=== PATIENT | male | born 1965 | race Caucasian/White ===

== ENCOUNTER 2019-06-15 01:58 | Emergency (ER) | payer OTHER, SELFPAY | END 2019-06-15 12:25 | disposition short-term general hospital (02) | PROVIDERS: Emergency Provider Emergency Medicine; Visit Provider Emergency Medicine | DX: K92.2 Gastrointestinal hemorrhage, unspecified (principal); K83.8 Other specified diseases of biliary tract; F17.210 Nicotine dependence, cigarettes, uncomplicated | CPT/HCPCS: 36415; 74177; 80053; 81001; 83690; 84484 ×3; 85025; 85610; 85730; 86850; 86900; 86901; 86920; 93005 ×3; 96365; 96366; 96367; 96368; 96375 ×2; 96376; 99285; C9113 ×2; J1170 ×5; J2405 ×2; J2543; J3010; Q9967 ==

== ENCOUNTER 2019-06-28 20:33 | Emergency (ER) | payer OTHER, SELFPAY ==
[2019-06-28 20:37] VITALS: BP 150/82; PULSE 82; RESP 18; TEMP 36.9; O2SAT 100
--- NOTE | 2019-06-28 21:11 | ED_ITS ---
Entered by Harmony Rojas, acting as scribe for Michael Finch DO Jun 28, 2019 20:33 HPI - Abdominal Pain General: Chief Complaint: Abdominal Pain Stated Complaint: Abd pain Time Seen by Provider: 06/28/19 21:12 Source: patient Mode of arrival: ambulatory Limitations: no limitations History of Present Illness: HPI narrative: 54 yo m came to the er for abd pain. Pts states that they are here for a second opinion. Pt states that pt had his surgery to remove his gallbladder and has been having pain ever since and the surgery was 2 months ago. He also states that he was discharged from [facility] in [place] on after having had percutaneous drainage of a fluid collection where his gallbladder was. He states that his pain recurred a couple of days after his drainage, and he has been dealing with it ever since. He denies any fever or vomiting. He states that he is here simply for some pain medicine before he goes back to [facility] to see what is wrong. MD elicited complaint: abdominal pain Pertinent past history: other (gallbladder removed) Onset (ago): month(s) (2 months ago) Pain Consistency: constant Location: RUQ Severity: mild Quality: other (pain) Radiation: none Migration to: no migration Exacerbating factors: nothing Relieving factors: nothing Associated Symptoms: Denies chills, dysuria, fever(s), hematochezia, hematuria, melena, nausea and vomiting Related Data: Patient : No Review of Systems Const: Denies: fever or chills Eyes: Denies: change in vision or blurry vision ENMT: Denies: painful swallowing, swelling of lips/tongue, bleeding gums, dental pain, Change in hearing, nose bleeds, post nasal drip or facial/sinus pain Card: Denies: chest pain, palpitations, irregular heart rhythm, edema, swelling of feet/ankles, shortness of breath on exertion or shortness of breath when lying down Resp: Denies: shortness of breath, productive cough, non-productive cough or wheezing GI: Denies: nausea, vomiting, blood in stool or black tarry stool : Denies: painful urination or blood in urine Musc: Denies: neck pain, back pain, redness or joint warmth Skin/Breast: Denies: rash, itching or redness Neuro: Denies: headache, dizziness, vertigo, confusion or seizure-like activity Psych: Denies: anxiety, visual hallucinations or auditory hallucinations PFSH ED PFSH: Statuses (acute, chronic, etc) shown below reflect problem list status as previously entered and may not be historically accurate Social History Smoking and tobacco status: current every day smoker Physical Exam Const: COMMON NORMALS: alert GENERAL APPEARANCE: well developed ORIENTATION/CONSCIOUSNESS: Yes awake, Yes oriented to person, Yes oriented to place and Yes oriented to time HENMT: COMMON NORMALS: normocephalic, external ears normal, external nose normal and moist oral mucous membranes HEAD & SCALP: normocephalic; no scalp tenderness FACE & SINUS: normal facial exam NOSE: external nose normal and no nasal discharge EXTERNAL EAR: Yes external ears normal Eye: COMMON NORMALS: PERRL, EOMs intact bilaterally and conjunctivae normal EYELID: eyelids normal CONJUNCTIVA: Yes conjunctivae normal PUPIL: Yes PERRL Neck/C-Spine: COMMON NORMALS: full ROM GENERAL: Yes anterior neck swelling and No tracheal deviation Chest: COMMONS NORMALS: inspection of chest normal CHEST: Yes symmetrical chest wall rise and No tenderness Resp: COMMON NORMALS: clear to auscultation bilaterally EFFORT & INSPECTION: No tachypneic, No respiratory distress, No retractions, No uses accessory muscles and No tracheal deviation AUSCULTATION: clear to auscultation bilaterally, no rhonchi, no wheezes and lung sounds not diminished Cardio: COMMON NORMALS: regular rate and regular rhythm RATE: regular rate RHYTHM: regular rhythm HEART SOUNDS: no murmurs PERIPHERAL PULSES: r adial pulses present GI: INSPECTION: No abdominal distension AUSCULTATION: No hyperactive bowel sounds and No hypoactive bowel sounds PALPATION: Yes tender Details: RLQ, No guarding and No rigid PERCUSSION: no dullness to percussion and no tympanic to percussion : COMMON NORMALS: Yes no CVA tenderness BLADDER/KIDNEY EXAM: Yes no CVA tenderness Back/Pelvis: COMMON NORMALS: no CVA tenderness Neuro: SENSORIUM/ORIENTATION: Yes alert, Yes oriented to person, Yes oriented to place and Yes oriented to time Psych: COMMON NORMALS: mental status grossly normal and speech normal SPEECH: Yes normal speech Skin: COMMON NORMALS: no rashes or lesions noted GENERAL SKIN EXAM: no rashes or lesions noted Course ED course: This patient has right upper quadrant pain. It is similar to the pain he had with a fluid collection in his gallbladder fossa, evidently that was drained via percutaneous drainage before the new year. There is no fever. There is no leukocytosis. He is tender to palpation. Ultrasound of the area reveals an ill-defined fluid collection in the gallbladder fossa. This patient stated that he was going to go back to [facility] when his truck is fixed tomorrow to be evaluated for this, and have it drained again. We do not have interventional radiology available in this hospital. As she is clinically stable, I do not see a problem with him going home before transferring himself by POV there for evaluation tomorrow. I briefly discussed the risks of not going by ambulance. The patient repeatedly stated that he was here simply for pain control and wanted to go home. Vital Signs: Vital signs: Vital Signs Temperature 98.5 F 06/28/19 20:37 Pulse Rate 72 06/29/19 00:28 Respiratory Rate 18 06/29/19 00:28 Blood Pressure 117/62 06/29/19 00:28 Pulse Oximetry 100 06/29/19 00:28 MDM - Abdominal Pain Lab Data: Labs: Lab Results 06/28/19 06/28/19 06/28/19 Range/Units 20:49 21:02 21:02 WBC 7.3 (4.0-10.0) 10^3/ uL RBC 3.50 L (4.1-5.3) 10^6/u L Hgb 9.6 L (11.7-16.6) g/dL Hct 33.7 L (42.0-52.0) % MCV 96.3 H (80-94) fL MCH 27.4 L (28.0-34.0) pg MCHC 28.5 L (30.0-36.0) g/dL RDW 18.8 H (12.1-15.1) % Plt Count 412 H (130-400) 10^3/c mm MPV 8.6 (7.4-10.4) fL Neut % (Auto) 57.3 % Lymph % (Auto) 25.6 % [place] % (Auto) 8.2 % Eos % (Auto) 8.1 % Baso % (Auto) 0.7 % Neut # (Auto) 4.2 (1.8-7.7) 10^3/u L Lymph # (Auto) 1.9 (0.8-4.8) 10^3/u L [place] # (Auto) 0.6 (0.2-0.9) 10^3/u L Eos # (Auto) 0.6 (0.0-0.8) 10^3/u L Baso # (Auto) 0.1 (0.0-0.1) 10^3/u L Nucleated RBC % (a uto) 0 % Nucleated RBCs # 0.0 /100WBC Sodium 148 H (136-145) mmol/L Potassium 4.6 (3.5-5.1) mmol/L Chloride 109 H (98-107) mmol/L Carbon Dioxide 24 (22-29) mmol/L Anion Gap 19.6 H (5-19) BUN 12 (6-20) mg/dL Creatinine 0.9 (0.7-1.2) mg/dL GFR Calculation 88.6 L (90-130) mL/min Glucose 85 (74-109) mg/dL Calcium 9.6 (8.6-10.0) mg/Dl Total Bilirubin 0.2 (0.15-1.2) mg/dL AST 19 (0-40) U/L ALT 14 (0-41) U/L Alkaline Phosphata se 112 (40-130) IU/L Total Protein 7.1 (6.6-8.7) g/dL Albumin 3.7 (3.5-5.2) g/dL Globulin 3.4 (1.3-4.6) g/dL Lipase (13-60) U/L Urine Color Yellow (Yellow) Urine Appearance Clear (CLEAR) Urine pH 6 (5-7) Ur Specific Gravit y 1.020 (1.005-1.030) Urine Protein Neg (Negative) Urine Glucose (UA) Norm (Normal) Urine Ketones Negative (Negative) Urine Occult Blood Neg (Negative) Urine Nitrate Negative (Negative) Urine Bilirubin Neg (NEGATIVE) Urine Urobilinogen Norm (Negative) mg/dL Ur Leukocyte Belkis ase Negative (Negative) 06/28/19 Range/Units 21:02 WBC (4.0-10.0) 10^3/ uL RBC (4.1-5.3) 10^6/u L Hgb (11.7-16.6) g/dL Hct (42.0-52.0) % MCV (80-94) fL MCH (28.0-34.0) pg MCHC (30.0-36.0) g/dL RDW (12.1-15.1) % Plt Count (130-400) 10^3/c mm MPV (7.4-10.4) fL Neut % (Auto) % Lymph % (Auto) % [place] % (Auto) % Eos % (Auto) % Baso % (Auto) % Neut # (Auto) (1.8-7.7) 10^3/u L Lymph # (Auto) (0.8-4.8) 10^3/u L [place] # (Auto) (0.2-0.9) 10^3/u L Eos # (Auto) (0.0-0.8) 10^3/u L Baso # (Auto) (0.0-0.1) 10^3/u L Nucleated RBC % (a uto) % Nucleated RBCs # /100WBC Sodium (136-145) mmol/L Potassium (3.5-5.1) mmol/L Chloride (98-107) mmol/L Carbon Dioxide (22-29) mmol/L Anion Gap (5-19) BUN (6-20) mg/dL Creatinine (0.7-1.2) mg/dL GFR Calculation (90-130) mL/min Glucose (74-109) mg/dL Calcium (8.6-10.0) mg/Dl Total Bilirubin (0.15-1.2) mg/dL AST (0-40) U/L ALT (0-41) U/L Alkaline Phosphata se (40-130) IU/L Total Protein (6.6-8.7) g/dL Albumin (3.5-5.2) g/dL Globulin (1.3-4.6) g/dL Lipase 238 H (13-60) U/L Urine Color (Yellow) Urine Appearance (CLEAR) Urine pH (5-7) Ur Specific Gravit y (1.005-1.030) Urine Protein (Negative) Urine Glucose (UA) (Normal) Urine Ketones (Negative) Urine Occult Blood (Negative) Urine Nitrate (Negative) Urine Bilirubin (NEGATIVE) Urine Urobilinogen (Negative) mg/dL Ur Leukocyte Belkis ase (Negative) Discharge Plan Discharge Patient Disposition: Home, Self-Care Clinical Impression: Hematoma following procedure Condition: Stable Prescriptions: New Percocet 5-325 mg tablet 1 tab PO TID PRN (Reason: pain) Qty: 7 RF: 0 Discharge Orders: Discharge Order (Routine); Ordered 06/29/19 Ordered By: Michael Finch Discharge Diet: Usual diet Discharge Activity: Increase activity as tolerated Activity Restrictions/Additional Instructions: I disc is been printed for you to take with you to [facility]. The disc is an ultrasound showing the fluid where your gallbladder was. It appears to have recollected. You have elected to go home, and follow-up with [facility] where it was drained before. Return or go there for fever greater than 100, worsening pain despite treatment, other concerning symptoms. Discharge Date/Time: 06/29/19 00:39 Coding Level of Care Code ED Para Operator for Chg Fwd The documentation recorded by the Bob medina Stephanie Lyn, accurately reflects the service I personally performed and the decisions made by , Michael Finch, Jun 28, 2019 20:33
[2019-06-28 21:18] LABS: Basophils # 0.1 10^3/uL (0.0-0.1); Basophils % 0.7 %; Eosinophils # 0.6 10^3/uL (0.0-0.8); Eosinophils % 8.1 %; Hematocrit 33.7 % (42.0-52.0); Hemoglobin 9.6 g/dL (11.7-16.6); Lymphocytes # 1.9 10^3/uL (0.8-4.8); Lymphocytes % 25.6 %; Mean Corpuscular HGB Conc 28.5 g/dL (30.0-36.0); Mean Corpuscular Hemoglobin 27.4 pg (28.0-34.0); Mean Corpuscular Volume 96.3 fL (80-94); Mean Platelet Volume 8.6 fL (7.4-10.4); Monocytes # 0.6 10^3/uL (0.2-0.9); Monocytes % 8.2 %; Neutrophils # 4.2 10^3/uL (1.8-7.7); Neutrophils % 57.3 %; Nucleated Red Blood Cells % 0 %; Platelet Count 412 10^3/cmm (130-400); Red Cell Distribution Width 18.8 % (12.1-15.1); White Blood Count 7.3 10^3/uL (4.0-10.0)
[2019-06-28 21:22] LABS: Add Urine Microscopic? NO
[2019-06-28 21:35] LABS: Alanine Aminotransferase 14 U/L (0-41); Albumin Level 3.7 g/dL (3.5-5.2); Alkaline Phosphatase 112 IU/L (40-130); Anion Gap 19.6 (5-19); Aspartate Amino Transferase 19 U/L (0-40); Blood Urea Nitrogen 12 mg/dL (6-20); Calcium 9.6 mg/Dl (8.6-10.0); Carbon Dioxide 24 mmol/L (22-29); Chloride 109 mmol/L (98-107); Globulin 3.4 g/dL (1.3-4.6); Glomerular Filtration Rate 88.6 mL/min (90-130); Glucose 85 mg/dL (74-109); Potassium 4.6 mmol/L (3.5-5.1); Sodium 148 mmol/L (136-145); Total Bilirubin 0.2 mg/dL (0.15-1.2); Total Protein 7.1 g/dL (6.6-8.7)
[2019-06-28 21:42] VITALS: BP 153/91; PULSE 81; RESP 18; O2SAT 100
--- NOTE | 2019-06-28 21:44 | PC.NURSE ---
Introduced self to patient and initiated vital signs. Pt is A&O x 4 and agitated. Pt states that the reason for the ER visit today is due to right side abdominal pain which presented approximately3 weeks ago. Reassured patient of needs and will continue to monitor. Awaiting provider at bedside.
[2019-06-28 21:50] LABS: Bilirubin Urine Neg (NEGATIVE); Blood Urine Neg (Negative); Glucose Urine UA Norm (Normal); Ketones Urine Negative (Negative); Leukocyte Esterase Urine Negative (Negative); Nitrate Urine Negative (Negative); Protein Urine Neg (Negative); Urine Appearance Clear (CLEAR); Urine Color Yellow (Yellow); Urobilinogen Urine Norm (Negative); pH Urine 6 (5-7)
--- NOTE | 2019-06-28 22:08 | USR_ITS ---
PROCEDURE INFORMATION: Exam: US Abdomen Limited Exam date and time: 06/28/2019 10:14 PM Age: 54 years old Clinical indication: Abdominal pain; Acute; Prior surgery; Surgery date: <1 month; Surgery type: Choley; Patient HX: Had problems immediately after surgery. Had CT here then shipped to [facility] in [facility]. They drained the area. Tonight PT is in increased pain. He has appointment with intervention At [facility] tomorrow; Additional info: Ruq pain recent choley. Post op problems. Area drained last week. Pain tonite and appointment tomorrow at That drained area. TECHNIQUE: Imaging protocol: Real-time ultrasound of the abdomen with image documentation. Examination is focused on the region of clinical interest. COMPARISON: CT Abdomen/[place]elvis w IV* [id number] 06/15/2019 3:07 AM FINDINGS: Gallbladder: Poorly defined material in the gallbladder fossa may reflect some complex fluid was not discretely measured. Gallbladder is absent. Liver is somewhat enlarged to 18 cm with fatty infiltration. US/US gall bladder [id number] IMPRESSION: 1. Poorly defined material in the gallbladder fossa may reflect some complex fluid was not discretely measured. 2. Gallbladder is absent. 3. Liver is somewhat enlarged to 18 cm with fatty infiltration.
[2019-06-28 22:34] LABS: Lipase 238 U/L (13-60)
[2019-06-28 22:38] VITALS: RESP 18
[2019-06-28] MEDS: oxyCODONE-APAP 5-325 mg Tablet 2 TAB PO (22:38)
[2019-06-28 22:42] VITALS: BP 128/72; PULSE 70; RESP 18; O2SAT 100
[2019-06-28 23:42] VITALS: BP 132/84; PULSE 73; RESP 18; O2SAT 100
[2019-06-28] MEDS: ketorolac 60 mg/2 mL INJ IM (23:54)
[2019-06-29 00:28] VITALS: BP 117/62; PULSE 72; RESP 18; O2SAT 100
== END 2019-06-29 00:39 | disposition home or self-care (01) ==
PROVIDERS: Family Medicine; Emergency Provider Emergency Medicine
DX: K91.871 Postprocedural hematoma of a digestive system organ or structure following other procedure (principal); F17.210 Nicotine dependence, cigarettes, uncomplicated
CPT/HCPCS: 76705; 80053; 81003; 83690; 85025; 96372; 99282; J1885

== ENCOUNTER 2019-07-07 08:42 | Emergency (ER) | payer OTHER, SELFPAY ==
[2019-07-07 08:47] VITALS: BP 149/74; PULSE 88; RESP 18; TEMP 36.5; O2SAT 100; BMI 21.2
--- NOTE | 2019-07-07 08:51 | ED_ITS ---
Entered by Munir Menendez, acting as scribe for Chiki Bone DO HPI - Abdominal Pain General: Chief Complaint: Abdominal Pain Stated Complaint: abd pain Time Seen by Provider: 07/07/19 08:58 History of Present Illness: HPI narrative: 54 yo male presents with abd pain. Pt states that his stomach started hurting last night. Pt states that his abdomen hurts in the epigastric area. Pt states that he has had some diarrhea. Pt states that he had his gallbladder taken out in April. Pt states that he has pancreatitis. MD elicited complaint: abdominal pain Associated Symptoms: Reports diarrhea; Denies chills, dysuria, fever(s), nausea and vomiting Review of Systems General: Reports: 10 or more systems reviewed and unremarkable except in HPI and below Const: Denies: fever, chills, body aches or change in appetite Eyes: Denies: change in vision, blurry vision or blind spots ENMT: Denies: throat pain, uvular edema, enlarged tonsils or painful swallowing Card: Denies: chest pain, palpitations, irregular heart rhythm or edema Resp: Denies: shortness of breath, productive cough or non-productive cough GI: Reports: abdominal pain and diarrhea; Denies: nausea or vomiting : Denies: flank pain, difficulty urinating or painful urination Musc: Denies: neck pain, back pain, extremity pain or joint warmth Skin/Breast: Denies: rash, itching, redness or sensitivity to light Neuro: Denies: headache, numbness in extremities or weakness in extremities Psych: Denies: anxiety, depression, mood swings or panic attacks Endo: Denies: excessive urination, excessive thirst or tired all the time Ganesh/Lymph: Denies: easy bruising, easy bleeding or petechiae PFSH ED PFSH: Statuses (acute, chronic, etc) shown below reflect problem list status as previously entered and may not be historically accurate Medical History Anxiety (Acute) Pancreatitis (Acute) Surgical History History of cholecystectomy (Acute) Social History Smoking and tobacco status: current every day smoker Physical Exam Const: COMMON NORMALS: no apparent distress, average body habitus, oriented x3, no limitations, healthy appearing, alert and well nourished HENMT: COMMON NORMALS: normocephalic, head/scalp atraumatic, hearing grossly normal bilaterally, external ears normal, EAC's normal, TM's normal bilaterally, external nose normal, nasal mucous membranes and turbinates normal, moist oral mucous membranes, oropharynx normal, dentition normal and gingiva normal HEAD & SCALP: normocephalic and atraumatic NOSE: external nose normal and nasal mucous membranes and turbinates normal EXTERNAL EAR: Yes external ears normal EXTERNAL AUDITORY CANAL: EAC's normal TYMPANIC MEMBRANE: TM's normal bilaterally THROAT: no uvular edema Eye: COMMON NORMALS: PERRL, EOMs intact bilaterally, conjunctivae normal, no scleral icterus, no papilledema, normal visual lombardo by confrontation and fundi normal bilaterally CONJUNCTIVA: Yes conjunctivae normal PUPIL: Yes PERRL DIRECT OPHTHALMOSCOPY: Yes no papilledema and Yes fundi normal bilaterally Neck/C-Spine: COMMON NORMALS: full ROM, no lymphadenopathy, supple, no meningeal signs, no JVD, thyroid normal and no carotid bruits THYROID: thyroid normal Chest: COMMONS NORMALS: inspection of chest normal and palpation of chest normal Resp: COMMON NORMALS: normal respiratory effort, no retractions, no use of accessory muscles, clear to auscultation bilaterally and percussion normal AUSCULTATION: clear to auscultation bilaterally PERCUSSION: percussion normal Cardio: COMMON NORMALS: no JVD, regular rate, regular rhythm, S1 normal heart sound, S2 normal heart sound, no gallops, no clicks, no murmurs, no rub and peripheral pulses 2+ throughout RATE: regular rate RHYTHM: regular rhythm HEART SOUNDS: S1 normal and S2 normal PERIPHERAL PULSES: pulses 2+ throughout GI: COMMON NORMALS: normal to inspection, nondistended, normoactive bowel s ounds, soft to palpation, no hepatosplenomegaly, no masses and no bruits; negative for non-tender (epigastric tenderness) PALPATION: Yes soft and Yes no hepatosplenomegaly : COMMON NORMALS: Yes no CVA tenderness BLADDER/KIDNEY EXAM: Yes no CVA tenderness Back/Pelvis: COMMON NORMALS: no CVA tenderness, thoracic and lumbar spine normal to inspection, no thoracic nor lumbar tenderness, thoraco-lumbar ROM normal and straight leg raise negative bilaterally Extremity: COMMON NORMALS: normal to inspection, full ROM, normal capillary refill, no joint enlargement, no clubbing, cyanosis or edema, no calf tenderness and no pedal edema Neuro: COMMON NORMALS: oriented x3 SENSORIUM/ORIENTATION: Yes alert MENINGEAL SIGNS: Yes no meningeal signs Skin: COMMON NORMALS: no rashes or lesions noted, no wounds, skin turgor normal, no jaundice, no petechiae and no mottling GENERAL SKIN EXAM: no rashes or lesions noted and turgor normal Course Vital Signs: Vital signs: Vital Signs Temperature 97.7 F 07/07/19 08:47 Pulse Rate 74 07/07/19 10:30 Respiratory Rate 16 07/07/19 10:30 Blood Pressure 123/75 07/07/19 10:30 Pulse Oximetry 74 L 07/07/19 10:30 MDM - Abdominal Pain Lab Data: Labs: Lab Results 07/07/19 07/07/19 07/07/19 Range/Units 08:59 09:10 09:10 WBC 4.7 (4.0-10.0) 10^3/ uL RBC 2.73 L (4.1-5.3) 10^6/u L Hgb 7.6 L (11.7-16.6) g/dL Hct 25.0 L (42.0-52.0) % MCV 91.6 (80-94) fL MCH 27.8 L (28.0-34.0) pg MCHC 30.4 (30.0-36.0) g/dL RDW 16.7 H (12.1-15.1) % Plt Count 275 (130-400) 10^3/c mm MPV 8.7 (7.4-10.4) fL Neut % (Auto) 66.3 % Lymph % (Auto) 22.2 % Clare % (Auto) 8.2 % Eos % (Auto) 2.7 % Baso % (Auto) 0.4 % Neut # (Auto) 3.1 (1.8-7.7) 10^3/u L Lymph # (Auto) 1.1 (0.8-4.8) 10^3/u L Clare # (Auto) 0.4 (0.2-0.9) 10^3/u L Eos # (Auto) 0.1 (0.0-0.8) 10^3/u L Baso # (Auto) 0.0 (0.0-0.1) 10^3/u L Nucleated RBC % (a uto) 0 % Nucleated RBCs # 0.0 /100WBC Sodium 136 (136-145) mmol/L Potassium 4.4 (3.5-5.1) mmol/L Chloride 101 (98-107) mmol/L Carbon Dioxide 25 (22-29) mmol/L Anion Gap 14.4 (5-19) BUN 15 (6-20) mg/dL Creatinine 0.7 (0.7-1.2) mg/dL GFR Calculation 118.4 (90-130) mL/min Glucose 109 (74-109) mg/dL Calcium 9.5 (8.6-10.0) mg/Dl Total Bilirubin 0.2 (0.15-1.2) mg/dL AST 25 (0-40) U/L ALT 23 (0-41) U/L Alkaline Phosphata se 100 (40-130) IU/L Total Protein 6.9 (6.6-8.7) g/dL Albumin 3.8 (3.5-5.2) g/dL Globulin 3.1 (1.3-4.6) g/dL Lipase 550 H (13-60) U/L Urine Color Straw (Yellow) Urine Appearance Clear (CLEAR) Urine pH 6.0 (5-7) Ur Specific Gravit y 1.010 (1.005-1.030) Urine Protein Neg (Negative) Urine Glucose (UA) Norm (Normal) Urine Ketones Negative (Negative) Urine Occult Blood Neg (Negative) Urine Nitrate Negative (Negative) Urine Bilirubin Neg (NEGATIVE) Urine Urobilinogen Norm (Negative) mg/dL Ur Leukocyte Belkis ase Negative (Negative) Discharge Plan Discharge Clinical Impression: Pancreatitis Qualifiers: Chronicity: chronic Pancreatitis type: unspecified pancreatitis type Qualified Code(s): K86.1 - Other chronic pancreatitis Abdominal pain Qualifiers: Abdominal location: upper abdomen, unspecified Qualified Code(s): R10.10 - Upper abdominal pain, unspecified Condition: Fair Prescriptions: No Action multivitamin Tablet 1 tab PO DAILY RF: 0 famotidine 20 mg Tablet 20 mg PO BID RF: 0 dicyclomine 20 mg tablet 20 mg PO QID RF: 0 gabapentin 300 mg capsule 300 mg PO TID RF: 0 zolpidem 5 mg tablet 5 mg PO BEDTIME PRN (Reason: Insomnia) RF: 0 Creon 24,000-76,000 -120,000 unit capsule,delayed release(DR/EC) 3 cap PO TID RF: 0 Referrals: Floyd Talamantes MD [Primary Care Provider] - Patient Instructions: Cholecystitis (ED), Abdominal Pain (ED) Coding Level of Care Code ED Senior Rd Engineer for Chg Fwd Exam Problem Focused The documentation recorded by the Shon medina Kialy, accurately reflects the service I personally performed and the decisions made by , Chiki Bone, Jul 07, 2019 08:42
--- NOTE | 2019-07-07 08:51 | PC.NURSE ---
Patient to treatment room.
--- NOTE | 2019-07-07 09:01 | PC.NURSE ---
Abdominal pain consistent with previous episodes related to pancreatitis.
[2019-07-07 09:10] LABS: Add Urine Microscopic? NO
[2019-07-07 09:14] LABS: Bilirubin Urine Neg (NEGATIVE); Blood Urine Neg (Negative); Glucose Urine UA Norm (Normal); Ketones Urine Negative (Negative); Leukocyte Esterase Urine Negative (Negative); Nitrate Urine Negative (Negative); Protein Urine Neg (Negative); Urine Appearance Clear (CLEAR); Urine Color Straw (Yellow); Urobilinogen Urine Norm (Negative)
[2019-07-07 09:20] LABS: Basophils % 0.4 %; Eosinophils # 0.1 10^3/uL (0.0-0.8); Eosinophils % 2.7 %; Hemoglobin 7.6 g/dL (11.7-16.6); Lymphocytes # 1.1 10^3/uL (0.8-4.8); Lymphocytes % 22.2 %; Mean Corpuscular HGB Conc 30.4 g/dL (30.0-36.0); Mean Corpuscular Hemoglobin 27.8 pg (28.0-34.0); Mean Corpuscular Volume 91.6 fL (80-94); Mean Platelet Volume 8.7 fL (7.4-10.4); Monocytes # 0.4 10^3/uL (0.2-0.9); Monocytes % 8.2 %; Neutrophils # 3.1 10^3/uL (1.8-7.7); Neutrophils % 66.3 %; Nucleated Red Blood Cells % 0 %; Platelet Count 275 10^3/cmm (130-400); Red Blood Count 2.73 10^6/uL (4.1-5.3); Red Cell Distribution Width 16.7 % (12.1-15.1); White Blood Count 4.7 10^3/uL (4.0-10.0)
[2019-07-07 09:21] VITALS: RESP 14
[2019-07-07] MEDS: fentaNYL 50 mcg/mL INJ 2mL 71.2 MCG IVP (09:21)
[2019-07-07] MEDS: ondansetron 2 mg/ML SDV 2 mL 4 MG IVP ×2 (09:22→11:50)
[2019-07-07] MEDS: sodium chloride 0.9% 1,000 ML 999 ML IV (09:22)
[2019-07-07 09:34] LABS: Alanine Aminotransferase 23 U/L (0-41); Albumin Level 3.8 g/dL (3.5-5.2); Alkaline Phosphatase 100 IU/L (40-130); Anion Gap 14.4 (5-19); Aspartate Amino Transferase 25 U/L (0-40); Blood Urea Nitrogen 15 mg/dL (6-20); Calcium 9.5 mg/Dl (8.6-10.0); Carbon Dioxide 25 mmol/L (22-29); Chloride 101 mmol/L (98-107); Globulin 3.1 g/dL (1.3-4.6); Glomerular Filtration Rate 118.4 mL/min (90-130); Glucose 109 mg/dL (74-109); Potassium 4.4 mmol/L (3.5-5.1); Sodium 136 mmol/L (136-145); Total Bilirubin 0.2 mg/dL (0.15-1.2); Total Protein 6.9 g/dL (6.6-8.7)
[2019-07-07 09:43] LABS: Lipase 550 U/L (13-60)
[2019-07-07 10:05] VITALS: BP 125/75; PULSE 86; RESP 14; O2SAT 98
[2019-07-07 10:30] VITALS: BP 123/75; PULSE 74; RESP 16; O2SAT 74; O2SAT 98
--- NOTE | 2019-07-07 10:39 | CT_ITS ---
WS: [id number] CT ABDOMEN PELVIS TECHNIQUE: Contrast-enhanced CT of the abdomen and pelvis with coronal and sagittal reformatted image s. CLINICAL INFORMATION: pancreatitis COMPARISON: DLP: 700.[address] scans at [facility] use at least one of these dose optimization techniques: automat ed exposure control; mA and/or kV adjustment per patient size (includes targeted exams where dose is matched to clinical indication); or iterative reconstruction. FINDINGS: Cholecystectomy. Again seen is a small fluid collection in the gallbladder fossa somewhat improved co mpared to the prior examination. Small amount of edema and fluid extends along the medial undersurfac e of the right hepatic lobe. Small fluid collection in the gallbladder fossa does not appear drainabl e Normal pancreatic parenchymal enhancement. No significant bile duct dilatation. Mild edema about the head and body of the pancreas consistent with history of pancreatitis. No abscess or pseudocyst. Port al vein and splenic vein are patent. Lung bases are well aerated. Normal right renal parenchymal enhancement. Left kidney is absent. Normal caliber abdominal aorta. Aortic calcification. Left JESUS. Small amount of free fluid in the pelvis. Prostate calcification. No evidence of small or l arge bowel obstruction. CT/CT abdomen pelvis w con* [id number] IMPRESSION: 1. Prior cholecystectomy with fluid collection in the gallbladder fossa slight ly improved compared to the prior examination. No well-defined drainable fluid collection today. 2. Normal pancreatic parenchymal enhancement with mild surrounding fluid and e tanner consistent with history of pancreatitis. No ductal dilatation or peripancr eatic abscess 3. No other changes from previous
--- NOTE | 2019-07-07 10:52 | PC.NURSE ---
Patient to CT via stretcher
[2019-07-07] MEDS: iodixanol 320 mg/mL 100mL Btl IV (10:57)
--- NOTE | 2019-07-07 10:59 | PC.NURSE ---
Patient back to room.
[2019-07-07] MEDS: morphine 4 mg/mL SDV 1 mL 2 MG IVP (11:50)
[2019-07-07] MEDS: sodium chloride 0.9% 1,000 ML 200 ML IV (11:50)
--- NOTE | 2019-07-07 12:30 | ED_ITS ---
Entered by Munir Menendez, acting as scribe for Chiki Bone DO Jul 07, 2019 08:42 HPI - Abdominal Pain General: Chief Complaint: Abdominal Pain Stated Complaint: abd pain Time Seen by Provider: 07/07/19 08:58 History of Present Illness: Associated Symptoms: Reports diarrhea; Denies chills, dysuria, fever(s), nausea and vomiting Review of Systems General: Reports: 10 or more systems reviewed and unremarkable except in HPI and below Const: Denies: fever, chills, body aches or change in appetite Eyes: Denies: change in vision, blurry vision or blind spots ENMT: Denies: throat pain, uvular edema, enlarged tonsils or painful swallowing Card: Denies: chest pain, palpitations, irregular heart rhythm or edema Resp: Denies: shortness of breath, productive cough or non-productive cough GI: Reports: abdominal pain and diarrhea; Denies: nausea or vomiting : Denies: flank pain, difficulty urinating or painful urination Musc: Denies: neck pain, back pain, extremity pain or joint warmth Skin/Breast: Denies: rash, itching, redness or sensitivity to light Neuro: Denies: headache, numbness in extremities or weakness in extremities Psych: Denies: anxiety, depression, mood swings or panic attacks Endo: Denies: excessive urination, excessive thirst or tired all the time Ganesh/Lymph: Denies: easy bruising, easy bleeding or petechiae PFSH ED PFSH: Statuses (acute, chronic, etc) shown below reflect problem list status as previously entered and may not be historically accurate Medical History (Updated 07/25/19 @ 00:37 by KIZZY Khan) Abscess of liver fluid collection in gallbladder fossa s/p drainage at [facility] 06/2019 Anemia Anxiety Chronic pancreatitis Osteoarthritis Pancreatitis Surgical History (Updated 07/07/19 @ 12:55 by Love Ruiz DO) H/O total hip arthroplasty Left History of cholecystectomy History of nephrectomy, left S/P lobectomy of lung 1995, L lung, due to infection Family History (Updated 07/07/19 @ 12:56 by Love Ruiz DO) Father Hypertension Mother Hypertension Hyperlipidemia Social History (Updated 07/07/19 @ 12:56 by Love Ruiz DO) Smoking and tobacco status: current every day smoker Alcohol intake: former Caregiver/support person: Yes (Mother) Physical Exam Const: COMMON NORMALS: no apparent distress, average body habitus, oriented x3, no limitations, healthy appearing, alert and well nourished HENMT: COMMON NORMALS: normocephalic, head/scalp atraumatic, hearing grossly normal bilaterally, external ears normal, EAC's normal, TM's normal bilaterally, external nose normal, nasal mucous membranes and turbinates normal, moist oral m ucous membranes, oropharynx normal, dentition normal and gingiva normal HEAD & SCALP: normocephalic and atraumatic NOSE: external nose normal and nasal mucous membranes and turbinates normal EXTERNAL EAR: Yes external ears normal EXTERNAL AUDITORY CANAL: EAC's normal TYMPANIC MEMBRANE: TM's normal bilaterally THROAT: no uvular edema Eye: COMMON NORMALS: PERRL, EOMs intact bilaterally, conjunctivae normal, no scleral icterus, no papilledema, normal visual lombardo by confrontation and fundi normal bilaterally CONJUNCTIVA: Yes conjunctivae normal PUPIL: Yes PERRL DIRECT OPHTHALMOSCOPY: Yes no papilledema and Yes fundi normal bilaterally Neck/C-Spine: COMMON NORMALS: full ROM, no lymphadenopathy, supple, no meningeal signs, no JVD, thyroid normal and no carotid bruits THYROID: thyroid normal Chest: COMMONS NORMALS: inspection of chest normal and palpation of chest normal Resp: COMMON NORMALS: normal respiratory effort, no retractions, no use of accessory muscles, clear to auscultation bilaterally and percussion normal AUSCULTATION: clear to auscultation bilaterally PERCUSSION: percussion normal Cardio: COMMON NORMALS: no JVD, regular rate, regular rhythm, S1 normal heart sound, S2 normal heart sound, no gallops, no clicks, no murmurs, no rub and p eripheral pulses 2+ throughout RATE: regular rate RHYTHM: regular rhythm HEART SOUNDS: S1 normal and S2 normal PERIPHERAL PULSES: pulses 2+ throughout GI: COMMON NORMALS: normal to inspection, nondistended, normoactive bowel sounds, soft to palpation, no hepatosplenomegaly, no masses and no bruits; negative for non-tender (epigastric tenderness) PALPATION: Yes soft and Yes no hepatosplenomegaly : COMMON NORMALS: Yes no CVA tenderness BLADDER/KIDNEY EXAM: Yes no CVA tenderness Back/Pelvis: COMMON NORMALS: no CVA tenderness, thoracic and lumbar spine normal to inspection, no thoracic nor lumbar tenderness, thoraco-lumbar ROM normal and straight leg raise negative bilaterally Extremity: COMMON NORMALS: normal to inspection, full ROM, normal capillary refill, no joint enlargement, no clubbing, cyanosis or edema, no calf tenderness and no pedal edema Neuro: COMMON NORMALS: oriented x3 SENSORIUM/ORIENTATION: Yes alert MENINGEAL SIGNS: Yes no meningeal signs Skin: COMMON NORMALS: no rashes or lesions noted, no wounds, skin turgor normal, no jaundice, no petechiae and no mottling GENERAL SKIN EXAM: no rashes or lesions noted and turgor normal Course Vital Signs: Vital signs: Vital Signs Temperature 97.7 F 07/07/19 08:47 Pulse Rate 75 07/07/19 12:51 Respiratory Rate 14 07/07/19 12:51 Blood Pressure 145/75 07/07/19 12:51 Pulse Oximetry 97 07/07/19 12:51 MDM - Abdominal Pain Lab Data: Labs: Lab Results 07/07/19 07/07/19 07/07/19 Range/Units 08:59 09:10 09:10 WBC 4.7 (4.0-10.0) 10^3/ uL RBC 2.73 L (4.1-5.3) 10^6/u L Hgb 7.6 L (11.7-16.6) g/dL Hct 25.0 L (42.0-52.0) % MCV 91.6 (80-94) fL MCH 27.8 L (28.0-34.0) pg MCHC 30.4 (30.0-36.0) g/dL RDW 16.7 H (12.1-15.1) % Plt Count 275 (130-400) 10^3/c mm MPV 8.7 (7.4-10.4) fL Neut % (Auto) 66.3 % Lymph % (Auto) 22.2 % [place] % (Auto) 8.2 % Eos % (Auto) 2.7 % Baso % (Auto) 0.4 % Neut # (Auto) 3.1 (1.8-7.7) 10^3/u L Lymph # (Auto) 1.1 (0.8-4.8) 10^3/u L [place] # (Auto) 0.4 (0.2-0.9) 10^3/u L Eos # (Auto) 0.1 (0.0-0.8) 10^3/u L Baso # (Auto) 0.0 (0.0-0.1) 10^3/u L Nucleated RBC % (a uto) 0 % Nucleated RBCs # 0.0 /100WBC Sodium 136 (136-145) mmol/L Potassium 4.4 (3.5-5.1) mmol/L Chloride 101 (98-107) mmol/L Carbon Dioxide 25 (22-29) mmol/L Anion Gap 14.4 (5-19) BUN 15 (6-20) mg/dL Creatinine 0.7 (0.7-1.2) mg/dL GFR Calculation 118.4 (90-130) mL/min Glucose 109 (74-109) mg/dL Calcium 9.5 (8.6-10.0) mg/Dl Total Bilirubin 0.2 (0.15-1.2) mg/dL AST 25 (0-40) U/L ALT 23 (0-41) U/L Alkaline Phosphata se 100 (40-130) IU/L Total Protein 6.9 (6.6-8.7) g/dL Albumin 3.8 (3.5-5.2) g/dL Globulin 3.1 (1.3-4.6) g/dL Lipase 550 H (13-60) U/L Urine Color Straw (Yellow) Urine Appearance Clear (CLEAR) Urine pH 6.0 (5-7) Ur Specific Gravit y 1.010 (1.005-1.030) Urine Protein Neg (Negative) Urine Glucose (UA) Norm (Normal) Urine Ketones Negative (Negative) Urine Occult Blood Neg (Negative) Urine Nitrate Negative (Negative) Urine Bilirubin Neg (NEGATIVE) Urine Urobilinogen Norm (Negative) mg/dL Ur Leukocyte Belkis ase Negative (Negative) Imaging Data ^: CT Abd/Pel: Radiologist's impression: Patient: Iván Garcia Unit #: [id number] : 1965 Age/Sex: 54 / M ADM Date: 07/07/19 Loc: ER Room/Bed: Attending Dr: Ordering Provider/Ordering MD: Chiik Bone DO Date of Service: 07/07/19 Procedure(s): CT abdomen pelvis w con* [id number] Accession Number(s): [id number] Report Number: [id number] WS: [id number] CT ABDOMEN PELVIS TECHNIQUE: Contrast-enhanced CT of the abdomen and pelvis with coronal and sagittal reformatted images. CLINICAL INFORMATION: pancreatitis COMPARISON: DLP: 700.[address] scans at [facility] use at least one of these dose optimization techniques: automated exposure control; mA and/or kV adjustment per patient size (includes targeted exams where dose is matched to clinical indication); or iterative reconstruction. FINDINGS: Cholecystectomy. Again seen is a small fluid collection in the gallbladder fossa somewhat improved compared to the prior examination. Small amount of edema and fluid extends along the medial undersurface of the right hepatic lobe. Small fluid collection in the gallbladder fossa does not appear drainable Normal pancreatic parenchymal enhancement. No significant bile duct dilatation. Mild edema about the head and body of the pancreas consistent with history of pancreatitis. No abscess or pseudocyst. Portal vein and splenic vein are patent. Lung bases are well aerated. Normal right renal parenchymal enhancement. Left kidney is absent. Normal caliber abdominal aorta. Aortic calcification. Left JESUS. Small amount of free fluid in the pelvis. Prostate calcification. No evidence of small or large bowel obstruction. CT/CT abdomen pelvis w con* [id number] IMPRESSION: 1. Prior cholecystectomy with fluid collection in the gallbladder fossa slightly improved compared to the prior examination. No well-defined drainable fluid collection today. 2. Normal pancreatic parenchymal enhancement with mild surrounding fluid and edema consistent with history of pancreatitis. No ductal dilatation or peripancreatic abscess 3. No other changes from previous Dictated By: Francisco Epstein MD Signed By: Francisco Epstein MD Signed Date/Time: 07/07/19 1135 DD/ 1122 Discharge Plan Discharge Patient Disposition: Home, Self-Care Clinical Impression: Pancreatitis, Abdominal pain Condition: Fair Prescriptions: No Action multivitamin Tablet 1 tab PO DAILY RF: 0 famotidine 20 mg Tablet 20 mg PO BID RF: 0 dicyclomine 20 mg tablet 20 mg PO QID RF: 0 gabapentin 300 mg capsule 300 mg PO TID RF: 0 zolpidem 5 mg tablet 5 mg PO BEDTIME PRN (Reason: Insomnia) RF: 0 Creon 24,000-76,000 -120,000 unit capsule,delayed release(DR/EC) 3 cap PO TID RF: 0 hydrocodone-acetaminophen 5-325 mg tablet 1 tab PO Q6H PRN (Reason: pain) Qty: 14 RF: 0 Discharge Orders: Discharge Order (Routine); Ordered 07/07/19 Ordered By: Chiki Bone Referrals: Floyd Talamantes MD [Primary Care Provider] - Patient Instructions: Cholecystitis (ED), Abdominal Pain (ED) Discharge Date/Time: 07/07/19 12:51 Coding Level of Care Code ED Air Intercept Controller Supervisor for Chg Fwd Exam Problem Focused The documentation recorded by the Shon medina Kialy, accurately reflects the service I personally performed and the decisions made by Lizandro crowder Donald P, DO Jul 07, 2019 08:42
--- NOTE | 2019-07-07 12:31 | PC.NURSE ---
SP02 previously document as 74% at 1030. This is not correct. Correct value entered. Unable to strike incorrect value.
--- NOTE | 2019-07-07 12:45 | PC.NURSE ---
Patient ambulating to restroom.
--- NOTE | 2019-07-07 12:49 | PM.HP ---
Providers/Chief Complaint Primary Care Provider: Floyd Talamantes MD Chief Complaint: abd pain History of Present Illness Iván Garcia is a 54 year old male with a past medical history of chronic pancreatitis and recent cholecystectomy with abscess formation following the procedure he was underwent a recent admissions to the hospital. He reported that he came in today for abdominal pain in the center of his abdomen that is now resolved after treatment in the ED. He stated that he was not having any nausea or vomiting at home, has been able to keep down his oral medications. He denies any fevers or chills. Patient reports that he was told he had constipation on prior imaging and told to take mag citrate yesterday, he took this and then began having symptoms early in the morning. He stated that he also ate some sausage and hamburger over the past couple of days, usually follows a low-fat diet but this was more fat than he typically intakes. Patient was seen and evaluated in the emergency department due to concern for chronic pancreatitis with the question of acute symptoms he had further CT scan performed. CT scan did not show any acute changes, abscess formation had improved. Patient reported that he was admitted to [facility] in [place] approximately 2 to 3 weeks ago and had drain of the abscess and has been on antibiotics since that time, doing well with no concerns. Discussed with patient the initial plan for observation but he reported that his symptoms have resolved now and he is requesting discharge to home. Patient denies any nausea, denies any abdominal pain, reports that he has no concerns taking his home medications or keeping down fluids. Discussed with him and his mother at bedside the recommendation to continue with a low-fat, bland diet and discharged home with close follow-up with his primary care provider. Discussed with patient and his mother his anemia, he reported history of recent transfusions and is undergoing work-up for this at this time. Review of Systems Const: Denies: fever or chills Eyes: Denies: change in vision ENMT: Denies: nasal congestion Card: Denies: chest pain, palpitations or edema Resp: Denies: shortness of breath, productive cough or coughing up blood GI: Reports: abdominal pain; Denies: nausea, vomiting, diarrhea, constipation, blood in stool or black tarry stool : Denies: painful urination or blood in urine Musc: Denies: extremity pain or muscle cramps Skin/Breast: Denies: rash or new lesion Neuro: Denies: headache or dizziness Psych: Denies: anxiety or depression Endo: Denies: excessive urination or hot flashes Ganesh/Lymph: Denies: easy bruising or easy bleeding Medications/Allergies Home Medications Medication Instructions Recorded Confirmed Last Taken Type dicyclomine 20 mg PO QID 07/07/19 07/07/19 07/07/19 History famotidine 20 mg PO BID 07/07/19 07/07/19 07/07/19 History gabapentin 300 mg PO TID 07/07/19 07/07/19 07/07/19 History [id number] [Creon] 3 cap PO TID 07/07/19 07/07/19 07/07/19 History multivitamin 1 tab PO DAILY 07/07/19 07/07/19 07/07/19 History zolpidem 5 mg PO BEDTIME PRN 07/07/19 07/07/19 Unknown History Allergies Allergy/AdvReac Type Severity Reaction Status Date / Time piperacillin [From Zosyn] Allergy ALGY-Swell Verified 06/28/19 20:43 Lip/Tongue/Throat tazobactam [From Zosyn] Allergy ALGY-Swell Verified 06/28/19 20:43 Lip/Tongue/Throat PFSH Acute PFSH: Statuses (acute, chronic, etc) shown below reflect problem list status as previously entered and may not be historically accurate Medical History (Updated 07/07/19 @ 13:00 by Love Ruiz DO) Abscess of liver (Acute) fluid collection in gallbladder fossa s/p drainage at [facility] 06/2019 Anemia (Acute) Anxiety (Acute) Chronic pancreatitis (Acute) Osteoarthritis (Acute) Pancreatitis (Acute) Surgical History (Updated 07/07/19 @ 12:55 by Love Ruiz DO) H/O total hip arthroplasty (Acute) Left History of cholecystectomy (Acute) History of nephrectomy, left (Acute) S/P lobectomy of lung (Acute) lung, due to infection Family History (Updated 07/07/19 @ 12:56 by Love Ruiz DO) Father Hypertension Mother Hypertension Hyperlipidemia Social History (Updated 07/07/19 @ 12:56 by Love Ruiz DO) Smoking and tobacco status: current every day smoker Alcohol intake: former Substance/Drug Use: never Caregiver/support person: Yes (Mother) Vitals/I&O/Wt Last Vital Signs Temp 97.7 F 07/07/19 08:47 Pulse 74 07/07/19 10:30 Resp 16 07/07/19 10:30 BP 123/75 07/07/19 10:30 Pulse Ox 98 07/07/19 10:30 Weight last 48 hrs Weight 71.214 kg Physical Exam Const: COMMON NORMALS: oriented x3 and alert GENERAL APPEARANCE: cooperative ORIENTATION/CONSCIOUSNESS: Yes awake, Yes oriented to person, Yes oriented to place and Yes oriented to time HENMT: COMMON NORMALS: normocephalic and head/scalp atraumatic HEAD & SCALP: normocephalic and atraumatic Eye: COMMON NORMALS: PERRL PUPIL: Yes PERRL Neck/C-Spine: COMMON NORMALS: supple GENERAL: Yes normal visual inspection Resp: COMMON NORMALS: normal respiratory effort and clear to auscultation bilaterally EFFORT & INSPECTION: Yes able to speak in complete sentences AUSCULTATION: clear to auscultation bilaterally, no rhonchi and no wheezes Cardio: COMMON NORMALS: regular rate, regular rhythm and no murmurs RATE: regular rate RHYTHM: regular rhythm GI: COMMON NORMALS: soft to palpation INSPECTION: No abdominal distension AUSCULTATION: Yes normoactive bowel sounds PALPATION: Yes soft OTHER: mild tenderness in the epigastric region, no guarding or rigidity Extremity: COMMON NORMALS: no clubbing, cyanosis or edema and no calf tenderness Neuro: COMMON NORMALS: oriented x3, CN's II-XII intact bilaterally, moves all extremities and no focal motor deficits SENSORIUM/ORIENTATION: Yes alert, Yes oriented to person, Yes oriented to place and Yes oriented to time SPEECH: speech normal Psych: COMMON NORMALS: mental status grossly normal and cooperative Skin: COMMON NORMALS: no rashes or lesions noted GENERAL SKIN EXAM: no rashes or lesions noted Data : 07/07/19 09:10 07/07/19 09:10 CT Abd/Pel: I personally reviewed and interpreted this imaging study as follows: Radiologist's impression: 1. Prior cholecystectomy with fluid collection in the gallbladder fossa slightly improved compared to the prior examination. No well-defined drainable fluid collection today. 2. Normal pancreatic parenchymal enhancement with mild surrounding fluid and edema consistent with history of pancreatitis. No ductal dilatation or peripancreatic abscess 3. No other changes from previous A&P Assessment and plan (1) Chronic pancreatitis: CT scan as noted above, no acute changes at this time Previously admitted in [place] for cholecystectomy, had drain placed after surgery, has now continued to have improvement Was recently admitted at [facility] 2 to 3 weeks ago due to concern for abscess in the gallbladder fossa, this is now improved on imaging and patient denies any fevers or chills, remains on antibiotics per surgeon in [place]. Patient reports at time of my exam that his abdominal pain has resolved, he denies any nausea or vomiting, stated that he overdid it with his diet with sausage and hamburger yesterday as well as taking mag citrate due to concern for constipation. He is requesting discharge to home, mother is at bedside and agrees that patient appears to be back to his baseline. Discussed with patient and his mother plan for discharge to home with low-fat, bland diet and close follow-up with his primary care provider and surgeon at [facility]. Continue with antibiotics as previously prescribed. Discussed with Dr. Gonzalez in the ED, will plan for discharge to home with close outpatient follow-up. Patient has follow-up with his primary care provider scheduled for tomorrow Status: Acute Code(s): K86.1 - Other chronic pancreatitis Additional A&P Information Anemia: With known anemia with recent transfusions, undergoing outpatient work-up, recommended continued work-up in the outpatient setting History of left-sided nephrectomy Tobacco abuse: Strongly encourage cessation Recent abscess of the gallbladder fossa: Plan as noted above, imaging shows improvement and recommend continued outpatient follow-up, patient remains on antibiotics per surgeon in [place] Plan for discharge to home with mother and close follow-up with primary care provider and surgeon. No changes to medications at this time, continue on home dicyclomine, famotidine, gabapentin, Creon and zolpidem Follow-up with primary care provider as scheduled tomorrow, follow-up with surgeon as previously scheduled, follow-up for continued work-up for anemia in the outpatient setting as previously scheduled Discussed with patient and his mother that he is to return to the ER for any worsening abdominal pain, nausea vomiting, fever or chills, or for any other acute illness or concern. They verbalized understanding and agreed with plan. Attestations Medical Necessity Statement*: Plan for discharge to home Coding Level of Care Code Acute Welder Fitter Gas for Chg Fwd Diagnoses Chronic pancreatitis K86.1
[2019-07-07 12:51] VITALS: BP 145/75; PULSE 75; RESP 14; O2SAT 97
== END 2019-07-07 12:51 | disposition home or self-care (01) ==
PROVIDERS: Physician Assistant; Emergency Provider Family Medicine; PCP Internal Medicine
DX: K86.1 Other chronic pancreatitis (principal); F17.210 Nicotine dependence, cigarettes, uncomplicated
CPT/HCPCS: 12345; 36415; 74177; 80053; 81003; 83690; 85025; 96360; 96361; 96374; 99281; J2270; J2405; J3010; J7030; Q9967

== ENCOUNTER 2019-07-24 21:48 | Emergency (ER) | payer SELFPAY ==
[2019-07-24 21:55] VITALS: BP 138/83; PULSE 86; RESP 22; TEMP 36.7; O2SAT 99
[2019-07-24 22:57] LABS: Basophils # 0.1 10^3/uL (0.0-0.1); Basophils % 0.7 %; Eosinophils # 0.4 10^3/uL (0.0-0.8); Eosinophils % 5.1 %; Hemoglobin 10.6 g/dL (11.7-16.6); Lymphocytes # 1.6 10^3/uL (0.8-4.8); Lymphocytes % 22.3 %; Mean Corpuscular HGB Conc 29.4 g/dL (30.0-36.0); Mean Corpuscular Hemoglobin 28.5 pg (28.0-34.0); Mean Corpuscular Volume 96.8 fL (80-94); Mean Platelet Volume 8.5 fL (7.4-10.4); Monocytes # 0.6 10^3/uL (0.2-0.9); Monocytes % 8.7 %; Neutrophils # 4.6 10^3/uL (1.8-7.7); Neutrophils % 62.9 %; Nucleated Red Blood Cells % 0 %; Platelet Count 418 10^3/cmm (130-400); Red Blood Count 3.72 10^6/uL (4.1-5.3); White Blood Count 7.3 10^3/uL (4.0-10.0)
[2019-07-24 23:11] LABS: Alanine Aminotransferase 17 U/L (0-41); Albumin Level 3.7 g/dL (3.5-5.2); Alkaline Phosphatase 149 IU/L (40-130); Anion Gap 16.5 (5-19); Aspartate Amino Transferase 15 U/L (0-40); Blood Urea Nitrogen 11 mg/dL (6-20); Calcium 9.6 mg/dL (8.5-10.5); Carbon Dioxide 26 mmol/L (22-29); Chloride 97 mmol/L (98-107); Creatinine Clr Calc Pharmacy 81.5698; Glomerular Filtration Rate 70.3 mL/min (90-130); Glucose 120 mg/dL (65-115); Lipase 146 U/L (13-60); Potassium 4.5 mmol/L (3.5-5.1); Sodium 135 mmol/L (136-145); Total Bilirubin 0.2 mg/dL (0.15-1.2); Total Protein 6.7 g/dL (6.6-8.7)
[2019-07-24 23:18] VITALS: BP 132/89; PULSE 88; RESP 18; O2SAT 99
[2019-07-24 23:36] VITALS: BP 116/80; PULSE 80; RESP 16; O2SAT 99
[2019-07-24 23:43] LABS: Add Urine Microscopic? YES; Bacteria Urine TRACE; Bilirubin Urine Neg (NEGATIVE); Blood Urine Neg (Negative); Glucose Urine UA Norm (Normal); Ketones Urine Negative (Negative); Leukocyte Esterase Urine Negative (Negative); Nitrate Urine Negative (Negative); Protein Urine Neg (Negative); Specific Gravity, Urine 1.015 (1.005-1.030); Sulfosalicylic Acid Urine Negative; Triple Phosphate Crystal Urine 0-4 /hpf; Urine Appearance Hazy (CLEAR); Urine Color Yellow (Yellow); Urobilinogen Urine Norm (Negative); WBC Urine RARE /hpf (0-5); pH Urine 9 (5-7)
[2019-07-24 23:44] LABS: Add Urine Culture? No; Amorphous Sediment Urine 3+
[2019-07-25] VITALS: BP 116/80; PULSE 75; RESP 17; O2SAT 98
[2019-07-25] MEDS: sodium chloride 0.9% 1,000 ML 999 ML IV
[2019-07-25 00:01] VITALS: RESP 18; O2SAT 98
[2019-07-25] MEDS: HYDROmorphone 1 mg/mL INJ 1 mL IVP (00:01)
--- NOTE | 2019-07-25 00:14 | W.ED.ABDPA2 ---
HPI - Abdominal Pain General: Chief Complaint: Abdominal Pain Stated Complaint: abd pain/poss pancreas Time Seen by Provider: 07/24/19 23:16 Source: patient Mode of arrival: ambulatory Limitations: no limitations History of Present Illness: HPI narrative: Patient is a 54-year-old male who presents to ED today with complaints of possible pancreatitis. Patient has a chronic history of pancreatitis and has been seen several times for evaluations. They are currently in the process of establishing with [facility] and a specialty physician up there. states patient has had increasing problems since his cholecystectomy last month. After that procedure he subsequently developed a fluid collection in his gallbladder fossa that was drained at [facility] in [place]. Last CT scan performed at our facility showed improvement. Patient's pain today is similar to previous pancreatitis flares. He has not been running fevers. Denies vomiting or abnormal stools. MD elicited complaint: abdominal pain Pain Consistency: constant Location: LUQ Severity: severe Quality: stabbing Radiation: none Exacerbating factors: nothing Relieving factors: nothing Associated Symptoms: Denies change in stool character, chills, coffee ground emesis, diarrhea, dysuria, fever(s), heartburn, hematochezia, hematemesis, melena, nausea, syncope and vomiting Review of Systems Const: Denies: fever or chills Card: Denies: chest pain, palpitations, irregular heart rhythm, edema, lightheadedness, syncope or pre-syncope Resp: Denies: shortness of breath or productive cough GI: Reports: abdominal pain; Denies: nausea, vomiting, vomiting blood, coffee grounds in vomit, difficulty swallowing, heartburn/indigestion, diarrhea, painful bowel movements, change in stool character, blood in stool, black tarry stool, white/light colored stool or fatty stool : Denies: flank pain, difficulty urinating, painful urination, urinary frequency, urinary urgency or urinary hesitancy Skin/Breast: Denies: rash Neuro: Denies: headache, numbness in extremities, weakness in extremities or changes in sensation PFSH ED PFSH: Statuses (acute, chronic, etc) shown below reflect problem list status as previously entered and may not be historically accurate Medical History (Updated 07/25/19 @ 00:37 by KIZZY Khan) Abscess of liver (Acute) fluid collection in gallbladder fossa s/p drainage at [facility] 06/2019 Anemia (Acute) Anxiety (Acute) Chronic pancreatitis (Acute) Osteoarthritis (Acute) Pancreatitis (Acute) Surgical History (Updated 07/07/19 @ 12:55 by Love Ruiz DO) H/O total hip arthroplasty (Acute) Left History of cholecystectomy (Acute) History of nephrectomy, left (Acute) S/P lobectomy of lung (Acute) 1995, L lung, due to infection Family History (Updated 07/07/19 @ 12:56 by Love Ruiz DO) Father Hypertension Mother Hypertension Hyperlipidemia Social History (Updated 07/07/19 @ 12:56 by Love Ruiz DO) Smoking and tobacco status: current every day smoker Alcohol intake: former Caregiver/support person: Yes (Mother) Physical Exam Const: COMMON NORMALS: average body habitus, oriented x3, no limitations and alert GENERAL APPEARANCE: cooperative and in distress (pain) Eye: COMMON NORMALS: no scleral icterus Resp: COMMON NORMALS: normal respiratory effort and clear to auscultation bilaterally AUSCULTATION: clear to auscultation bilaterally Cardio: COMMON NORMALS: regular rate and regular rhythm RATE: regular rate RHYTHM: regular rhythm GI: COMMON NORMALS: normal to inspection, nondistended, normoactive bowel sounds, no hepatosplenomegaly and no masses PALPATION: Yes tender (diffuse) and Yes no hepatosplenomegaly Neuro: COMMON NORMALS: oriented x3 SENSORIUM/ORIENTATION: Yes alert Skin: COMMON NORMALS: no rashes or lesions noted and no jaundice GENERAL SKIN EXAM: no rashes or lesions noted Course Vital Signs: Vital signs: Vital Signs Temperature 98.1 F 07/24/19 21:55 Pulse Rate 88 07/24/19 23:18 Respiratory Rate 18 07/25/19 00:01 Blood Pressure 132/89 07/24/19 23:18 Pulse Oximetry 98 07/25/19 00:01 MDM - Abdominal Pain MDM Narrative: Medical decision making narrative: Patient feels better after pain medications here. His labs are fairly unremarkable apart from a lipase of 146 which actually seems to be pretty good for patient. He feels comfortable going home and following up with [facility]. I do not feel emergent repeat ultrasounds and/or CT scans are warranted on today's visit as they are very unlikely to change my overall management. Lab Data: Labs: Lab Results 07/24/19 07/24/19 07/24/19 Range/Units 22:47 22:47 23:00 WBC 7.3 (4.0-10.0) 10^3/ uL RBC 3.72 L (4.1-5.3) 10^6/u L Hgb 10.6 L (11.7-16.6) g/dL Hct 36.0 L (42.0-52.0) % MCV 96.8 H (80-94) fL MCH 28.5 (28.0-34.0) pg MCHC 29.4 L (30.0-36.0) g/dL RDW 18.0 H (12.1-15.1) % Plt Count 418 H (130-400) 10^3/c mm MPV 8.5 (7.4-10.4) fL Neut % (Auto) 62.9 % Lymph % (Auto) 22.3 % [place] % (Auto) 8.7 % Eos % (Auto) 5.1 % Baso % (Auto) 0.7 % Neut # (Auto) 4.6 (1.8-7.7) 10^3/u L Lymph # (Auto) 1.6 (0.8-4.8) 10^3/u L [place] # (Auto) 0.6 (0.2-0.9) 10^3/u L Eos # (Auto) 0.4 (0.0-0.8) 10^3/u L Baso # (Auto) 0.1 (0.0-0.1) 10^3/u L Nucleated RBC % (a uto) 0 % Nucleated RBCs # 0.0 /100WBC Sodium 135 L (136-145) mmol/L Potassium 4.5 (3.5-5.1) mmol/L Chloride 97 L (98-107) mmol/L Carbon Dioxide 26 (22-29) mmol/L Anion Gap 16.5 (5-19) BUN 11 (6-20) mg/dL Creatinine 1.1 (0.7-1.2) mg/dL GFR Calculation 70.3 L (90-130) mL/min Glucose 120 H (65-115) mg/dL Calcium 9.6 (8.5-10.5) mg/dL Total Bilirubin 0.2 (0.15-1.2) mg/dL AST 15 (0-40) U/L ALT 17 (0-41) U/L Alkaline Phosphata se 149 H (40-130) IU/L Total Protein 6.7 (6.6-8.7) g/dL Albumin 3.7 (3.5-5.2) g/dL Globulin 3.0 (1.3-4.6) g/dL Lipase 146 H (13-60) U/L Urine Color Yellow (Yellow) Urine Appearance Hazy A (CLEAR) Urine pH 9 H (5-7) Ur Specific Gravit y 1.015 (1.005-1.030) Urine Protein Neg (Negative) Urine Glucose (UA) Norm (Normal) Urine Ketones Negative (Negative) Urine Occult Blood Neg (Negative) Urine Nitrate Negative (Negative) Urine Bilirubin Neg (NEGATIVE) Prot Sulfosalicyli c Acd Negative Urine Urobilinogen Norm (Negative) mg/dL Ur Leukocyte [place] ase Negative (Negative) Urine RBC None (0-2) /hpf Urine WBC Rare (0-5) /hpf Ur Squamous Epith Cells None (0-5) Triple Phos [place] ls 0-4 H /hpf Amorphous Sediment 3+ Urine Bacteria Trace (NONE) Discharge Plan Discharge Patient Disposition: Home, Self-Care Clinical Impression: Chronic pancreatitis Qualifiers: Pancreatitis type: unspecified pancreatitis type Qualified Code(s): K86.1 - Other chronic pancreatitis Condition: Stable Prescriptions: New hydrocodone-acetaminophen 5-325 mg tablet 1 tab PO Q6H PRN (Reason: pain) Qty: 14 RF: 0 No Action multivitamin Tablet 1 tab PO DAILY RF: 0 famotidine 20 mg Tablet 20 mg PO BID RF: 0 dicyclomine 20 mg tablet 20 mg PO QID RF: 0 gabapentin 300 mg capsule 300 mg PO TID RF: 0 zolpidem 5 mg tablet 5 mg PO BEDTIME PRN (Reason: Insomnia) RF: 0 Creon 24,000-76,000 -120,000 unit capsule,delayed release(DR/EC) 3 cap PO TID RF: 0 Discharge Orders: Discharge Order (Routine); Ordered 07/25/19 Ordered By: Joselin Atkins Referrals: Floyd Talamantes MD [Primary Care Provider] - Discharge Diet: Usual diet Discharge Activity: Increase activity as tolerated Activity Restrictions/Additional Instructions: Follow up with [facility] as scheduled. Coding Level of Care Code ED Operating Cost Clerk for Chg Fwd Exam Problem Focused
[2019-07-25 00:30] VITALS: BP 116/80; PULSE 69; RESP 14; O2SAT 98
[2019-07-25] MEDS: HYDROcodone-acetaminophen 5-325 mg Tablet 2 TAB PO (01:01)
[2019-07-25 01:05] VITALS: BP 128/74; PULSE 74; RESP 12; TEMP 37.1; O2SAT 98
== END 2019-07-25 01:06 | disposition home or self-care (01) ==
PROVIDERS: Emergency Provider Physician Assistant; PCP Internal Medicine
DX: K86.1 Other chronic pancreatitis (principal); F17.210 Nicotine dependence, cigarettes, uncomplicated; Z90.5 Acquired absence of kidney; Z90.2 Acquired absence of lung [part of]
CPT/HCPCS: 80053; 81001; 83690; 85025; 96361; 96374; 96375; 99283; J1170; J7030